=== PATIENT | male | born 1930 | race Caucasian/White ===

== ENCOUNTER 2017-05-09 16:21 | Emergency (ER) | payer SELFPAY ==
[~2017-05-09] VITALS: Ht 162.6 cm; Wt 71.5 kg
[~2017-05-09 16:21] MED LIST: ALBU18HF INHALATION; ALBU8.5H5 INH; AZIT250T94 PO; BECL8.7A INH; PRED20TA PO
[2017-05-09 16:28] VITALS: Ht 162.6 cm; Wt 71.5 kg
[2017-05-09] MEDS ORDERED: SOD CHLORIDE 0.9% 1,000 ML IV STA (16:41)
--- NOTE | 2017-05-09 17:22 | RADRPT ---
PROCEDURE: CT Head without contrast. CLINICAL INDICATION: Syncope and headaches TECHNIQUE: The study was performed utilizing a GE 64-slice multidetector CT scanner. Direct spiral axial CT images of the brain were obtained from the vertex to the skull base without contrast. Veto nal and sagittal reformatted images are provided. The CTDI vol is 42.81 mGy and the DLP is 720.23 mG y-cm. The images were reviewed on a PACS workstation. COMPARISON: No prior studies are available for comparison. FINDINGS: Moderate diffuse atrophy is seen with a compensatory ventricular enlargement. Moderate white matter disease in the periventricular and deep white matter is seen. A chronic infarct in the right middle cerebral artery territory is seen. A small chronic infarct in the left frontal lobe near the verte x is also seen. The heredia-white matter differentiation is maintained. No intra or extra-axial fluid collection or mass effect or shift in the midline structures is seen. Retention cysts are seen in t he bilateral maxillary sinuses with mucosal thickening. Mucosal thickening is also seen in the bila teral ethmoid and sphenoid sinuses. The mastoid air cells, orbits, and calvarium are unremarkable. Vascular calcifications are seen. IMPRESSION: 1. No acute intracranial pathology. 2. Moderate diffuse volume loss and moderate chronic microvascular ischemic changes. 3. 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 RPTAT: HPNM Physician Shar Date Time Electronically viewed and signed by Physician Shar on 05/09/2017 17:22 /
[2017-05-09 17:30] LABS: BASOPHILS % 0.3 % (0.0-2.0); EOSINOPHILS # 0.4 10^3/ul (0.0-0.5); EOSINOPHILS % 4.1 % (0.0-7.0); HEMATOCRIT 39.1 % (42.0-52.0); HEMOGLOBIN 13.1 g/dl (14.0-18.0); LYMPHOCYTES # 2.2 10^3/ul (0.8-2.9); MEAN CORPUSCULAR HEMOGLOBIN 32.6 pg (29.0-33.0); MEAN CORPUSCULAR HGB CONC 33.5 g/dl (32.0-37.0); MEAN CORPUSCULAR VOLUME 97.3 fl (82.0-101.0); MEAN PLATELET VOLUME 9.1 fl (7.4-10.4); MONOCYTE # 0.9 10^3/ul (0.3-0.9); MONOCYTES % 9.5 % (0.0-11.0); NEUTROPHIL # 5.6 10^3/ul (1.6-7.5); NEUTROPHILS % 61.3 % (39.0-77.0); PLATELET COUNT 246 10^3/UL (140-415); RED BLOOD COUNT 4.02 10^6/ul (4.70-6.10); RED CELL DISTRIBUTION WIDTH 12.9 % (11.5-14.5); WHITE BLOOD COUNT 9.1 10^3/ul (4.8-10.8)
[2017-05-09 17:44] LABS: INR 0.94; PROTIME 12.6 Sec (12.2-14.2)
[2017-05-09 17:45] LABS: PARTIAL THROMBOPLASTIN TIME 25.6 Sec (25.0-35.0)
[2017-05-09 17:47] LABS: ANION GAP 20 (8-16); BLOOD UREA NITROGEN 18 mg/dl (7-20); CALCIUM 9.3 mg/dl (8.4-10.2); CARBON DIOXIDE 26 mmol/L (21-31); CHLORIDE 103 mmol/L (97-110); CREATININE 1.18 mg/dl (0.61-1.24); GLUCOSE 83 mg/dl (70-220); POTASSIUM 4.2 mmol/L (3.5-5.1); SODIUM 145 mmol/L (135-144)
[2017-05-09] MEDS ORDERED: ACETAMINOPHEN 500 MG TAB PO STA (17:47)
[2017-05-09 17:59] LABS: TROPONIN-I < 0.012 ng/ml (0.00-0.12)
--- NOTE | 2017-05-09 18:13 | RADRPT ---
PROCEDURE: XR Chest. CLINICAL INDICATION: Syncope TECHNIQUE: Single AP portable chest. COMPARISON: 06/26/2016 Chest x-ray FINDINGS: The cardiomediastinal silhouette is within normal limits of size. The lungs are clear without pleur al effusion or focal consolidation. No pneumothorax. The osseous structures and soft tissues are unr emarkable. IMPRESSION: 1. No evidence for active cardiopulmonary disease. RPTAT:AAJJ Hemant Kirkland Physician Date Time Electronically viewed and signed by Hemant Kirkland Physician on 05/09/2017 18:13 NAVEED/
[2017-05-09] MEDS ORDERED: ACET500C5 PO (20:51)
--- NOTE | 2017-05-09 21:02 | ERA ---
ER Documentation Chief Complaint Date/Time DATE: 05/09/17 TIME: 20:54 Chief Complaint C/O HEADCAWEST , STATES HE PASSED OUT AT LIBRARY TODAY HPI This 86-year-old male drove himself to the emergency room because he was at the library when he possibly had a syncopal episode. He remembers reading his book and was able to describe what point he was on the book but he thinks he fell asleep. He awoke a library staff telling him that he needs to go to the hospital. He did have a headache but does not think he had any head trauma. States that he feels well now and does have a slight bitemporal headache. He denies any weakness, chest pain, shortness of breath, dizziness. Also states that he is going to [place] on Thursday and has to leave by the ROS All systems reviewed and are negative except as per history of present illness. Medications Home Meds Active Scripts Acetaminophen* (Tylophen*) 500 Mg Capsule, 1 CAP PO Q6H Y for PAIN AND OR ELEVATED TEMP, #20 CAP Prov:DIPTI DSOUZA DO 05/09/17 Discontinued Scripts Azithromycin* (Zithromax*) 250 Mg Tablet, 250 MG PO .ZPACK DIRECTED, #6 TAB TAKE 500 MG (2 TABS) THE FIRST DAY THEN 250 MG (1 TAB) DAYS 2-5 Prov:ANGELO HESS MD 06/26/16 Prednisone* (Prednisone*) 20 Mg Tab, 40 MG PO DAILY for 5 Days, TAB Prov:ANGELO HESS MD 06/26/16 Albuterol Sulfate* (Ventolin HFA*) 18 Gm Hfa.aer.ad, 2 PUFF INHALATION Q4H, #1 INHALER Prov:ANGELO HESS MD 06/26/16 Beclomethasone Dip* (Qvar 40*) 7.3 Gm Inha, 1 PUFF INH BID, #1 INH Prov:GALDINO AMAYA MD 03/21/15 Albuterol Sulfate* (Albuterol Sulfate* HFA) 8.5 Gm Hfa.aer.ad, 2 PUFF INH Q4 Y for SHORTNESS OF BREATH, #1 EA Prov:GALDINO AMAYA MD 03/21/15 Allergies Allergies: Coded Allergies: No Known Allergy (Verified , 7/22/17) PMhx/Soc History of Surgery: Yes (Cancer colon 16 yrs ago, colectomy) Anesthesia Reaction: No Hx Neurological Disorder: No Hx Respiratory Disorders: No Hx Cardiac Disorders: No Hx Psychiatric Problems: No Hx Miscellaneous Medical Probl: Yes (COLON CANCER) Hx Alcohol Use: No Hx Substance Use: No Hx Tobacco Use: No Smoking Status: Never smoker Physical Exam Vitals Vital Signs Date Time Temp Pulse Resp B/P Pulse Ox O2 Delivery O2 Flow Rate FiO2 05/09/17 16:28 98.1 83 18 182/85 98 Physical Exam Const: [] No distress Head: Atraumatic, no tenderness Eyes: Normal Conjunctiva, EOMI, REGINA ENT: Normal External Ears, Nose and Mouth. Tympanic membranes clear bilaterally with no blood or fluid. Mucous membranes of the mouth Neck: Full range of motion..~ No meningismus. No midline or paraspinal muscle tenderness Resp: Clear to auscultation bilaterally Cardio: Regular rate and rhythm, no murmurs Abd: Soft, non tender, non distended. Normal bowel sounds Skin: No petechiae or rashes Back: No midline or flank tenderness Ext: No cyanosis, or edema Neur: Awake and alert and oriented 3, cranial nerves II through XII intact, cerebellar finger to nose normal, gait normal Psych: Normal Mood and Affect Result Diagram: 05/09/172 05/09/17 1652 Results 24 hrs Laboratory Tests Test 05/09/17 16:52 05/09/17 17:40 White Blood Count 9.110^3/ul Red Blood Count 4.0210^6/ul Hemoglobin 13.1g/dl Hematocrit 39.1% Mean Corpuscular Volume 97.3fl Mean Corpuscular Hemoglobin 32.6pg Mean Corpuscular Hemoglobin Concent 33.5g/dl Red Cell Distribution Width 12.9% Platelet Count 69094^3/UL Mean Platelet Volume 9.1fl Neutrophils % 61.3% Lymphocytes % 24.0% Monocytes % 9.5% Eosinophils % 4.1% Basophils % 0.3% Nucleated Red Blood Cells % 0.0/100WBC Neutrophils # 5.610^3/ul Lymphocytes # 2.210^3/ul Monocytes # 0.910^3/ul Eosinophils # 0.410^3/ul Basophils # 0.010^3/ul Nucleated Red Blood Cells # 0.010^3/ul Prothrombin Time 12.6Sec Prothrombin Time Ratio 1.0 INR International Normalized Ratio 0.94 Activated Partial Thromboplast Time 25.6Sec Sodium Level 145mmol/L Potassium Level 4.2mmol/L Chloride Level 103mmol/L Carbon Dioxide Level 26mmol/L Anion Gap 20 Blood Urea Nitrogen 18mg/dl Creatinine 1.18mg/dl Glucose Level 83mg/dl Calcium Level 9.3mg/dl Troponin I < 0.012ng/ml Bedside Glucose 83mg/dL Current Medications Medications (Trade) Dose Ordered Sig/Kallie Route PRN Reason Start Time Stop Time Status Last Admin Dose Admin Sodium Chloride (NS) 1,000 ml @ 1,000 mls/hr Q1H STAT IV 05/09/17 16:41 05/09/17 17:40 DC 05/09/17 16:56 Acetaminophen (Tylenol Tab) 1,000 mg ONCE STAT PO 05/09/17 17:47 05/09/17 17:49 DC 05/09/17 17:55 Procedures/MDM Elderly male with possible syncopal episode at the library. Patient is unusually high functioning for his age. Patient believes that he just fell asleep. Did have a headache. But at a CT within 6 hours of the onset of the headache that shows no acute process. I have very low suspicion for subarachnoid hemorrhage. He was monitored for 4 hours in the emergency room with no syncopal episodes, normal cardiac monitoring and patient remained wide awake and reading his book. As the patient's age and syncopal episode I did recommend admission to him he declines admission. He was unwilling to provide a urinalysis as well. No signs of acute cardiac ischemia however patient wants to sign out AGAINST MEDICAL ADVICE. I am still going to discharge him with Tylenol and primary care follow-up for the local clinics. Instructed him to follow-up first thing on Thursday. Also instructed to return to the emergency room for any acute changes as would be happy to have him back EKG interpretation: Normal sinus rhythm rate of 75, bifascicular block, no ST or T-wave changes concerning for acute ischemia, left axis deviation. Mild QT prolongation of 473. conveyor monitor interpretation: Sinus rhythm without arrhythmia CT head interpretation: Evidence of old stroke without any acute process. I see no hemorrhage, no mass-effect or midline shift no skull fracture Chest x-ray interpretation: I see no acute process. I see no pneumothorax, no infiltrate, no pulmonary edema, no fractures . Departure Diagnosis: Primary Impression: Syncope Additional Impression: Headache Condition: Stable Patient Instructions: Causes of Syncope, Self-Care for Headaches Referrals: COMMUNITY CLINICS YOU HAVE RECEIVED A MEDICAL SCREENING EXAM AND THE RESULTS INDICATE THAT YOU DO NOT HAVE A CONDITION THAT REQUIRES URGENT TREATMENT IN THE EMERGENCY DEPARTMENT. FURTHER EVALUATION AND TREATMENT OF YOUR CONDITION CAN WAIT UNTIL YOU ARE SEEN IN YOUR DOCTORS OFFICE WITHIN THE NEXT 1-2 DAYS. IT IS YOUR RESPONSIBILITY TO MAKE AN APPOINTMENT FOR FOLOW-UP CARE. IF YOU HAVE A PRIMARY DOCTOR --you should call your primary doctor and schedule an appointment IF YOU DO NOT HAVE A PRIMARY DOCTOR YOU CAN CALL OUR PHYSICIAN REFERRAL HOTLINE AT IF YOU CAN NOT AFFORD TO SEE A PHYSICIAN YOU CAN CHOSE FROM THE FOLLOWING [facility] CLINICS [facility] [address] [facility]. [facility] [address] [facility] [address] [facility] [facility] [address] [facility] [facility] [address] [facility]. [facility]. [address] Additional Instructions: Call your primary care doctor TOMORROW for an appointment during the next 1-2 days.See the doctor sooner or return here if your condition worsens before your appointment time. DIPTI DSOUZA DO May 09, 2017 21:02
[2017-05-09 21:43] VITALS: BP 126/68; PULSE 75; RESP 18; TEMP 98.1
== END 2017-05-09 21:51 | disposition left against medical advice (07) ==
LOC: E/R 16:21
DX: R55 Syncope and collapse (principal); Z85.038 Personal history of other malignant neoplasm of large intestine
CPT/HCPCS: 70450; 71010; 80048; 82962; 84484; 85025; 85610; 85730; 99285; J7030; 93005

== ENCOUNTER 2017-09-08 10:39 | Emergency (ER) | payer MEDICARE ==
[~2017-09-08] VITALS: Wt 70.8 kg
[~2017-09-08 10:39] MED LIST changes: +ACET500C5 PO; -ALBU18HF INHALATION; -ALBU8.5H5 INH; -AZIT250T94 PO; -BECL8.7A INH; -PRED20TA PO
--- NOTE | 2017-09-08 11:26 | RADRPT ---
PROCEDURE: XR Chest. CLINICAL INDICATION: Chest pain, cough TECHNIQUE: Single frontal view of the chest was obtained. COMPARISON: CR CHEST 06/26/2016 FINDINGS: The heart is within normal limits. The thoracic aorta is calcified. There are mild chronic interstitial changes throughout the lungs, more pronounced in the lung bases. There is no pleural effusion or pneumothorax. RPTAT: AA IMPRESSION: Mild chronic interstitial changes, more pronounced in the lung bases. No focal consolidation. Calcified aorta consistent with atherosclerotic disease. .Zack Webb MD, MD Date Time Electronically viewed and signed by .Zack Webb MD, MD on 09/08/2017 11:26 .S/
[2017-09-08] MEDS ORDERED: BENZ100C70 PO (11:32)
--- NOTE | 2017-09-08 13:12 | ERD ---
ER Documentation Chief Complaint Chief Complaint cough irreg hr 62-155 HPI Patient is an 87-year-old male with no medical problems who presents with a cough. The patient has had a cough over the past 2 days. The patient says that he has had some productive phlegm but no fevers. He tried Robitussin for his symptoms. His friend is here with similar type cough. ROS All systems reviewed and are negative except as per history of present illness. Medications Home Meds Active Scripts Benzonatate* (Tessalon Perle*) 100 Mg Capsule, 100 MG PO Q8H Y for COUGH, #30 CAP Prov:NANDO ROBLERO MD 09/08/17 Acetaminophen* (Tylophen*) 500 Mg Capsule, 1 CAP PO Q6H Y for PAIN AND OR ELEVATED TEMP, #20 CAP Prov:DIPTI DSOUZA DO 05/09/17 Allergies Allergies: Coded Allergies: No Known Allergy (Verified , 05/09/17) PMhx/Soc History of Surgery: Yes (Cancer colon 16 yrs ago, colectomy) Anesthesia Reaction: No Hx Neurological Disorder: No Hx Respiratory Disorders: No Hx Cardiac Disorders: No Hx Psychiatric Problems: No Hx Miscellaneous Medical Probl: Yes (COLON CANCER) Hx Alcohol Use: No Hx Substance Use: No Hx Tobacco Use: No Smoking Status: Never smoker FmHx Family History: No diabetes Physical Exam Vitals Vital Signs Date Time Temp Pulse Resp B/P Pulse Ox O2 Delivery O2 Flow Rate FiO2 09/08/17 10:42 98.1 95 24 111/67 98 Physical Exam Const: No acute distress Head: Atraumatic Eyes: Normal Conjunctiva ENT: Normal External Ears, Nose and Mouth. Neck: Full range of motion..~ No meningismus. Resp: Clear to auscultation bilaterally Cardio: Regular rate and rhythm, no murmurs Abd: Soft, non tender, non distended. Normal bowel sounds Skin: No petechiae or rashes Back: No midline or flank tenderness Ext: No cyanosis, or edema Neur: Awake and alert Psych: Normal Mood and Affect Procedures/MDM Chest x-ray negative for pneumonia or pneumothorax per radiology. Patient is an 87-year-old male presents with a cough. The patient has no pneumonia or pneumothorax. I doubt pulmonary embolism. I believe outpatient management is appropriate. I believe this is likely a viral upper respiratory infection. The patient will be given a prescription for Tessalon Perles for symptomatic relief. He will need to follow-up with a primary doctor within 24- 48 hours. Departure Diagnosis: Primary Impression: URI (upper respiratory infection) URI type: unspecified URI Qualified Code: J06.9 - Upper respiratory tract infection, unspecified type Additional Impression: Cough Condition: Fair Patient Instructions: Uri, Viral, No Abx (Adult) Referrals: COMMUNITY CLINICS YOU HAVE RECEIVED A MEDICAL SCREENING EXAM AND THE RESULTS INDICATE THAT YOU DO NOT HAVE A CONDITION THAT REQUIRES URGENT TREATMENT IN THE EMERGENCY DEPARTMENT. FURTHER EVALUATION AND TREATMENT OF YOUR CONDITION CAN WAIT UNTIL YOU ARE SEEN IN YOUR DOCTORS OFFICE WITHIN THE NEXT 1-2 DAYS. IT IS YOUR RESPONSIBILITY TO MAKE AN APPOINTMENT FOR FOLOW-UP CARE. IF YOU HAVE A PRIMARY DOCTOR --you should call your primary doctor and schedule an appointment IF YOU DO NOT HAVE A PRIMARY DOCTOR YOU CAN CALL OUR PHYSICIAN REFERRAL HOTLINE AT IF YOU CAN NOT AFFORD TO SEE A PHYSICIAN YOU CAN CHOSE FROM THE FOLLOWING [facility] CLINICS [facility] [address] [facility]. [facility] [address] [facility] [facility] [address] [facility] [facility] [address] [facility] [facility] [address] [facility]. [facility]. [address] Additional Instructions: Call your primary care doctor TOMORROW for an appointment during the next 1-2 days.See the doctor sooner or return here if your condition worsens before your appointment time. NANDO ROBLERO MD Sep 08, 2017 13:12
== END 2017-09-08 12:00 | disposition home or self-care (01) ==
LOC: E/R 10:39
DX: J06.9 Acute upper respiratory infection, unspecified (principal); Z85.038 Personal history of other malignant neoplasm of large intestine
CPT/HCPCS: 71010